=== PATIENT | female | born 1980 | race Caucasian/White ===

== ENCOUNTER 2023-08-15 15:27 | Emergency (ER) | payer MEDICARE, OTHER ==
[2023-08-15 15:59] VITALS: TEMP 98.2
[2023-08-15] MEDS ORDERED: LORazepam 1 MG TAB PO STA (18:56)
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
[2023-08-15 19:54] VITALS: BP 117/81; PULSE 82; RESP 16
== END 2023-08-15 20:20 | disposition home or self-care (01) ==
LOC: EC 15:27
DX: F41.9 Anxiety disorder, unspecified (principal); I10 Essential (primary) hypertension; F17.290 Nicotine dependence, other tobacco product, uncomplicated; F12.90 Cannabis use, unspecified, uncomplicated; F11.90 Opioid use, unspecified, uncomplicated; Z88.8 Allergy status to other drugs, medicaments and biological substances
CPT/HCPCS: 82075; 99284